=== PATIENT | male | born 1995 | race Caucasian/White ===

== ENCOUNTER 2023-06-03 12:11 | Emergency (ER) | payer SELFPAY ==
[~2023-06-03] VITALS: Ht 160 cm; Wt 100.0 kg
[2023-06-03 13:12] VITALS: BP 106/65; PULSE 80; TEMP 97.9
== END 2023-06-03 13:12 | disposition home or self-care (01) ==
LOC: COL.ER 12:11
DX: L98.8 Other specified disorders of the skin and subcutaneous tissue (principal); Z98.890 Other specified postprocedural states